=== PATIENT | male | born 1975 | race Caucasian/White ===

== ENCOUNTER 2017-05-20 13:53 | Emergency (ER) | payer MEDICAID, OTHER ==
[~2017-05-20] VITALS: Ht 170.2 cm; Wt 76.7 kg
[~2017-05-20 13:53] MED LIST: CLON1TAB4; HYDR-3652
--- NOTE | 2017-05-20 13:59 | NUR ---
[facility] to ER - after a GLF at [facility]
[2017-05-20] MEDS ORDERED: HYDROCODONE/APAP 10/325MG 1 EA TABLET PO ONE (14:00)
[2017-05-20] MEDS ORDERED: HYDROCODONE/APAP 10/325MG 1 EA TABLET ONE (14:02)
--- NOTE | 2017-05-20 14:04 | NUR ---
pain meds given as ordered
--- NOTE | 2017-05-20 14:16 | NUR ---
PT TO RADIOLOGY FOR LUMBAR SPINE XRAY VIA [facility].
[2017-05-20 15:51] VITALS: BP 122/80
--- NOTE | 2017-05-20 15:52 | NUR ---
Patient discharged to home in stable condition. Written and verbal after care instructions given. Patient verbalizes understanding of instruction.
== END 2017-05-20 15:53 | disposition home or self-care (01) ==
LOC: ER 13:54
DX: M25.531 Pain in right wrist (principal); M54.5 Low back pain; M79.641 Pain in right hand; M79.652 Pain in left thigh; M25.552 Pain in left hip; W01.0XXA Fall on same level from slipping, tripping and stumbling without subsequent striking against object, initial encounter; Y93.89 Activity, other specified; Y92.89 Other specified places as the place of occurrence of the external cause; Y99.9 Unspecified external cause status
CPT/HCPCS: 72100-TC; 72170-TC; 73130-TC; 73552; A4606; Z7610